=== PATIENT | female | born 1965 ===

== ENCOUNTER 2017-11-27 12:35 | Emergency (ER) | payer OTHER ==
[2017-11-27 12:36] VITALS: BMI 24.6
[2017-11-27 13:06] VITALS: BP 131/67
[2017-11-27] MEDS ORDERED: Albuterol 0.083% Inhal Sol (2.5 mg/3 mL) UD INH STA (13:40)
--- NOTE | 2017-11-27 13:43 | C.PDOC ---
Time Seen by Provider: 11/27/17 13:23 Chief Complaint (Nursing): Cough, Cold, Congestion Past Medical History Vital Signs: Last Vital Signs Temp 99.7 F H 11/27/17 13:00 Pulse 88 11/27/17 13:00 Resp 20 11/27/17 13:00 BP 131/67 11/27/17 13:00 Pulse Ox 97 11/27/17 13:00 Family History: States: Unknown Family Hx - Social History Hx Alcohol Use: No Hx Substance Use: No - Immunization History Hx Influenza Vaccination: No ED Course And Treatment O2 Sat by Pulse Oximetry: 97 Disposition Counseled Patient/Family Regarding: Need For Followup, Rx Given - Disposition Referrals: [facility] [Outside] Disposition: HOME/ ROUTINE Disposition Time: 13:40 Condition: IMPROVED Additional Instructions: Ms. Odonnell, thank you for letting us take care of you today. Return to the ER if your symptoms worsen, or if any problems. Take the medication listed below as prescribed. Please follow up at our [facility]--call the phone number listed below to make an appointment with our clinic doctor. Prescriptions: Albuterol HFA [Ventolin HFA 90 mcg/actuation (8 g)] 2 puff IH [id number] PRN #1 inhaler PRN Reason: Cough Levofloxacin [Levaquin] 1 tab PO DAILY #7 tablet Instructions: Community Acquired Pneumonia (ED), How to Use a Metered-Dose Inhaler (ED) Forms: Gen Discharge Inst [place] Print Language: INDONESIAN - POA Present On Arrival: None - Clinical Impression Clinical Impression: Pneumonia
[2017-11-27] MEDS ORDERED: Albuterol-Ipratrop 3 mg / 0.5 (3 ml) UD ONE (13:45)
[2017-11-27 14:00] VITALS: PULSE 94; RESP 18; TEMP 99; O2SAT 100
== END 2017-11-27 13:59 | disposition home or self-care (01) ==
LOC: C.ER 12:35
DX: J18.9 Pneumonia, unspecified organism (principal)